=== PATIENT | male | born 1980 | race Caucasian/White ===

== ENCOUNTER 2020-12-25 00:03 | Emergency (ER) | payer MEDICARE, MEDICAID ==
[~2020-12-25] VITALS: Ht 185.4 cm; Wt 97.0 kg
[2020-12-25 00:52] LABS: BASOPHILS % (AUTO) 0.5 % (0-1); EOSINOPHILS # (AUTO) 0.1 X10'3 (0-0.9); EOSINOPHILS % (AUTO) 1.4 % (0-6); HEMATOCRIT 39.6 % (42.0-52.0); HEMOGLOBIN 13.3 g/dl (14.0-17.9); LYMPHOCYTES # (AUTO) 1.1 X10'3 (1.1-4.8); LYMPHOCYTES % (AUTO) 12.5 % (21-51); MEAN CORPUSCULAR HEMOGLOBIN 28.9 PG (27.0-31.0); MEAN CORPUSCULAR HGB CONC 33.5 g/dL (33.0-36.5); MEAN CORPUSCULAR VOLUME 86.4 FL (78-98); MEAN PLATELET VOLUME 9.7 FL (7.4-10.4); MONOCYTES # (AUTO) 0.5 X10'3 (0-0.9); MONOCYTES % (AUTO) 5.8 % (2-12); NEUTROPHILS # (AUTO) 7.2 X10'3 (1.8-7.7); NEUTROPHILS % (AUTO) 79.8 % (42-75); PLATELET COUNT 242 X10'3 (140-440); RED BLOOD COUNT 4.58 X10'6 (4.70-6.10)
[2020-12-25 00:54] LABS: ALANINE AMINOTRANSFERASE 54 U/L (12-78); ALBUMIN 3.9 G/DL (3.4-5.0); ALKALINE PHOSPHATASE 100 IU/L (46-116); ANION GAP 11 (8-16); ASPARTATE AMINO TRANSFERASE 51 U/L (10-37); BILIRUBIN,TOTAL 0.5 MG/DL (0.1-1.0); BLOOD UREA NITROGEN 15 MG/DL (7-18); BUN/CREATININE RATIO 16.1 (5.4-32.0); CALCIUM 8.9 MG/DL (8.5-10.1); CHLORIDE 106 MMOL/L (99-107); CREATININE 0.93 MG/DL (0.60-1.10); ETHANOL < 0.010 GM/DL (0.0-0.010); GLUCOSE 104 MG/DL (70-104); POTASSIUM 3.2 MMOL/L (3.5-5.1); SODIUM 143 MMOL/L (135-145); TOTAL CARBON DIOXIDE 25.7 MMOL/L (24-32); TOTAL PROTEIN 7.7 G/DL (6.4-8.2); eGFR 90 ML/MIN
[2020-12-25] MEDS ORDERED: potassium Cl 20 mEq SR tablet PO STA (01:17)
[2020-12-25] MEDS ORDERED: LORazepam 1 MG tablet PO ONE ×2 (01:20→10:45)
--- NOTE | 2020-12-25 02:59 | NUR ---
Pt does not answer questions. Unable to accurately assess at this time. Pt changed into green scrubs, and belongings removed from room. Equipment removed from room.
--- NOTE | 2020-12-25 04:17 | NUR ---
Pt resting in room. Pt makes occasional crying sounds and talks to himself. Otherwise he is peaceful
[2020-12-25 07:01] LABS: URINE AMPHETAMINE SCREEN POSITIVE (Neg); URINE BARBITUATE SCREEN NEGATIVE (Neg); URINE BENZODIAZEPINES SCREEN NEGATIVE (Neg); URINE CANNABINOID SCREEN POSITIVE (Neg); URINE COCAINE SCREEN NEGATIVE (Neg); URINE METHADONE SCREEN NEGATIVE (Neg); URINE OPIATE SCREEN POSITIVE (Neg); URINE PHENCYCLIDINE SCREEN NEGATIVE (Neg)
--- NOTE | 2020-12-25 07:31 | NUR ---
Pt resting in [facility]. RR e/u. Awaiting mental health evaluation. Will continue to monitor.
--- NOTE | 2020-12-25 11:55 | NUR ---
DISCUSSED PATIENT WITH MD ARAIZA: EMMANUELJACQUELYNBetty IS VERY RILED UP WITH 2 TECHS IN THE ROOM WITH HIM, ASKING FOR HIS "FUCKING SUBOXONE NOW" AND AMPING UP PACING QUICKLY AROUND THE ROOM AND SWINGING HIS ARMS
[2020-12-25] MEDS ORDERED: buprenorphine/naloxone 8MG-2MG SUBlingual film SL SCH (12:00)
--- NOTE | 2020-12-25 13:00 | NUR ---
patient lying on left side with his eyes closed rreven and unlabored
--- NOTE | 2020-12-25 13:40 | NUR ---
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 PATIENT DENIES OTHER SURGERIES. "IM JUST A DRUG ADDICT" WITH BIPOLAR AND DEPRESSION PATIENT DOES NOT READILY ADMIT HIS DX: I HAD TO ASK IN MANY DIFFERENT WAYS IF HE HAD ANY PHYSCHIATRIC DX PATIENT REPORTS BEING ON 12 MEDICATIONS: HE ONLY KNOWS : "DR BARRIGA: 8 MG SUBOXONE" DAILY;CYMBALTA 120 MG PATIENT ATE SANDWHICH AND DRANK 240 ML MILK
--- NOTE | 2020-12-25 15:04 | NUR ---
HE WAS KICKED OUT FROM [facility] HOME IN NOVEMBER; END OF PATIENT WAS HOMELES PRIOR TO THE RECOVERY HOUSE
--- NOTE | 2020-12-25 16:47 | NUR ---
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 SAW PATIENT AND ARE NOT PLACING HIM ON A HOLD
--- NOTE | 2020-12-25 17:25 | NUR ---
PATIENT ATE ANOTHER SANDWHICH AND 500 ML WATER
--- NOTE | 2020-12-25 17:54 | NUR ---
JOSE DE JESUS BERGMAN CELL [phone] LIFT MECHANIC FOR SUBSTANCE ABUSE PROGRAM PER JOSE DE JESUS [facility] JOSE DE JESUS IS AWARE THAT THE PATIENT IS MEDICALLY CLEARED FOR REHAB. PATIENT VERBALIZED THAT HE WILL WALK TO THE SACHSE AND WAS PROVIDED THE ADDRESS AND DIRECTIONS
--- NOTE | 2020-12-25 18:20 | NUR ---
PATIENT WEARING HIS CLOTHES;ADMISSION AND SECURITY ARE RETRIEVING HIS VALUABLES FROM THE SAFE.
[2020-12-25 18:21] VITALS: BP 138/67
== END 2020-12-25 18:26 | disposition home or self-care (01) ==
LOC: ER 00:04
DX: F19.10 Other psychoactive substance abuse, uncomplicated (principal); Z20.822 Contact with and (suspected) exposure to COVID-19; F41.9 Anxiety disorder, unspecified; E87.6 Hypokalemia; F31.9 Bipolar disorder, unspecified; F12.90 Cannabis use, unspecified, uncomplicated; F15.90 Other stimulant use, unspecified, uncomplicated; F11.90 Opioid use, unspecified, uncomplicated; Z86.19 Personal history of other infectious and parasitic diseases; Z60.2 Problems related to living alone
CPT/HCPCS: 36415; 80053; 80305; 80320; 85025; 87426; 99284

== ENCOUNTER 2021-01-24 14:58 | Emergency (ER) | payer MEDICARE, MEDICAID ==
[~2021-01-24] VITALS: Ht 180.3 cm; Wt 113.6 kg
[2021-01-24] MEDS ORDERED: diphenhydrAMINE 50 mg/ml inj IM ONE (15:40)
[2021-01-24] MEDS ORDERED: buprenorphine/naloxone 8MG-2MG SUBlingual film SL SCH (15:40)
[2021-01-24] MEDS ORDERED: proCHLORperazine 10 MG/2 ml inj IM ONE (15:40)
[2021-01-24] MEDS ORDERED: buprenorphine/naloxone 8MG-2MG SUBlingual film SL ONE (16:10)
[2021-01-24 17:06] VITALS: BP 120/74
== END 2021-01-24 17:11 | disposition home or self-care (01) ==
LOC: ER 14:58
DX: R51.9 Headache, unspecified (principal); R11.0 Nausea; F31.9 Bipolar disorder, unspecified; F12.90 Cannabis use, unspecified, uncomplicated; F15.90 Other stimulant use, unspecified, uncomplicated; F11.90 Opioid use, unspecified, uncomplicated; Z86.19 Personal history of other infectious and parasitic diseases; Z60.2 Problems related to living alone
CPT/HCPCS: 96372; 99284; J0780; J1200